=== PATIENT | male | born 1990 | race African-American/Black ===

== ENCOUNTER 2022-03-05 14:45 | Emergency (ER) | payer SELFPAY ==
[~2022-03-05] VITALS: Ht 188 cm; Wt 108.0 kg
[2022-03-05 15:08] VITALS: BP 121/61
[2022-03-05 16:44] LABS: BASOPHILS % (AUTO) 0.5 % (0.0-2.0); EOSINOPHILS # (AUTO) 0.3 K/uL (0-0.4); HEMATOCRIT 41.7 % (36-52); HEMOGLOBIN 13.9 g/dL (12.0-18.0); LYMPHOCYTES # (AUTO) 1.9 K/uL (2.0-11.5); LYMPHOCYTES % (AUTO) 28.5 % (20.5-51.1); MEAN CORPUSCULAR HEMOGLOBIN 30 pg (27-31); MEAN CORPUSCULAR HGB CONC 33 g/dL (33-37); MEAN CORPUSCULAR VOLUME 90.5 fL (80-94); MONOCYTES # (AUTO) 0.5 K/uL (0.8-1.0); MONOCYTES % (AUTO) 7.9 % (1.7-9.3); NEUTROPHILS % (AUTO) 59.1 % (42.2-75.2); PLATELET COUNT (AUTO) 358 K/uL (140-450); RED BLOOD CELL COUNT(AUTO) 4.61 MIL/uL (4.20-6.10); RED CELL DISTRIBUTION WIDTH 13.6 % (11.6-13.7); WHITE BLOOD COUNT (AUTO) 6.7 K/uL (4.8-10.8)
--- NOTE | 2022-03-05 16:45 | NUR ---
31/M PRESENTS TO ED WITH C/O FATIGUE, PALPITATIONS AND EPISODES OF SOB X1 WEEK. PATIENT REPORTS HX OF HEART CONDITIONS AND LUPUS AND STATES HE IS CONCERNED SYMPTOMS MAY BE RELATED. PATIENT DENIES CP, SOB AT TIME OF ASSESSMENT.
[2022-03-05 17:02] LABS: ALBUMIN 4.4 g/dL (3.4-5.0); ANION GAP 12.1 (8-16); ASPARTATE AMINOTRANSFERASE 19 U/L (15-37); CHLORIDE 102 mmol/L (98-107); CREATININE 1.1 mg/dL (0.6-1.3); GFR ARICAN-AMERICAN 101 mL/min (>90); GLUCOSE 103 mg/dL (74-106); POTASSIUM 4.1 mmol/L (3.5-5.1); SODIUM SERUM 140 mmol/L (136-145); TOTAL BILIRUBIN 0.6 mg/dL (0.0-1.0); UREA NITROGEN, BLOOD 14 mg/dL (7-18)
[2022-03-05 18:41] VITALS: BP 151/76
--- NOTE | 2022-03-05 18:42 | NUR ---
Patient discharged with v/s stable. Written and verbal after care instructions ABOUT PALPITATIONS given and explained. Patient verbalized understanding. Ambulatory with steady gait. All questions addressed prior to discharge. Advised to follow up with PMD.
== END 2022-03-05 18:41 | disposition home or self-care (01) ==
LOC: MED 14:45
DX: R00.2 Palpitations (principal); F41.9 Anxiety disorder, unspecified
CPT/HCPCS: 36415; 71045; 80053; 84484; 85025; 85379; 93005; 99285